=== PATIENT | female | born 1995 | race Asian ===

== ENCOUNTER 2019-06-22 14:22 | Emergency (ER) | payer SELFPAY ==
[~2019-06-22] VITALS: Ht 165.1 cm; Wt 62.1 kg
[2019-06-22 14:27] VITALS: BP 95/72; Ht 165.1 cm; Wt 62.1 kg
== END 2019-06-22 14:55 | disposition home or self-care (01) ==
LOC: ED 14:22
DX: M25.532 Pain in left wrist (principal); M54.9 Dorsalgia, unspecified; V43.52XA Car driver injured in collision with other type car in traffic accident, initial encounter; Y93.I9 Activity, other involving external motion; Y92.488 Other paved roadways as the place of occurrence of the external cause; Y99.8 Other external cause status